=== PATIENT | female | born 1950 | race Caucasian/White ===

== ENCOUNTER 2024-09-25 18:30 | Outpatient (REF) | payer MEDICARE, SELFPAY ==
[2024-09-26 10:52] LABS: Campylobacter PCR Negative (Negative); Salmonella PCR Negative (Negative); Shiga Toxin PCR Negative (Negative); Shigella/Enteroinvasive Ecoli Negative (Negative)
== END 2024-09-25 18:31 | disposition home or self-care (01) ==
LOC: LBN 18:30
PROVIDERS: PCP Nurse Practitioner Family; Visit Provider Physician Assistant
DX: A09 Infectious gastroenteritis and colitis, unspecified; R19.8 Other specified symptoms and signs involving the digestive system and abdomen
CPT/HCPCS: 87329; 87505; 87177

== ENCOUNTER 2024-12-21 14:28 | Outpatient (CLI) | payer MEDICARE, SELFPAY ==
--- NOTE | 2024-12-21 13:45 | DI.RAD_ITS ---
Exam(s) XR PELVIS AP EXAM: XR PELVIS AP CLINICAL HISTORY: RIGHT HIP PAIN. TECHNIQUE: 2D digital imaging was performed. Single AP view. COMPARISON: CR XR Hip 2-3 Views Right from 03/17/2024 FINDINGS: BONES: No acute fracture is present. No bony destructive lesion is seen. JOINTS: No dislocation present. There is moderate narrowing of the superior left hip joint space. T here is moderate periarticular spurring. The left hip I joints are unremarkable. SOFT TISSUE: Normal. IMPRESSION: No acute abnormality. Moderate degenerative changes of the right hip. DATA REPOSITORY: RADIATION DOSE DELIVERED:
== END 2024-12-21 14:29 | disposition home or self-care (01) ==
LOC: DIORS 14:28
PROVIDERS: PCP Registered Nurse; Referring Provider Nurse Practitioner Family; Visit Provider Student in an Organized Health Care Education/Training Program
DX: M16.11 Unilateral primary osteoarthritis, right hip; G20.C Parkinsonism, unspecified
CPT/HCPCS: 20611; J1010; 72170

== ENCOUNTER 2025-03-29 16:18 | Outpatient (REF) | payer MEDICARE, SELFPAY ==
[2025-03-29 16:07] LABS: HCT 40.3 % (36.0-46.0); HGB 12.9 g/dL (11.2-15.7); MCH 26.7 pg (27.0-33.0); MCHC 32.0 % (32.0-36.0); MCV 83 fL (80-95); MPV 11.7 fL (8.0-11.0); Platelet Count 245 10^3/uL (130-400); RBC 4.84 10^6/uL (3.93-5.22); RDW 12.4 % (11.7-14.6); RDW-SD 37.6 fL; WBC 6.10 10^3/uL (4.4-10.8)
[2025-03-29 16:16] LABS: Anion Gap 7.9 mmol/L (3-11); BUN 20 mg/dL (7-18); CO2 28.1 mmol/L (21.0-32.0); Calcium 9.2 mg/dL (8.5-10.1); Chloride 103 mmol/L (98-107); Estimated GFR 91.26 (mL/min/1.73m2); Glucose 129 mg/dL (74-106); Potassium 4.4 mmol/L (3.5-5.1); Sodium 139 mmol/L (136-145)
== END 2025-03-29 16:19 | disposition home or self-care (01) ==
LOC: LBN 16:18
PROVIDERS: PCP Registered Nurse; Visit Provider Student in an Organized Health Care Education/Training Program
DX: Z01.818 Encounter for other preprocedural examination (principal); M16.11 Unilateral primary osteoarthritis, right hip
CPT/HCPCS: 80048; 85027

== ENCOUNTER 2025-04-06 06:55 | Day surgery (SDC) | payer MEDICARE, SELFPAY ==
[2025-04-06] VITALS (19 sets, daily range): BP systolic 87–123; BP diastolic 46–92; PULSE 53–236; RESP 11–22; TEMP 36.1–36.7; O2SAT 95–100; BMI 17.6
--- NOTE | 2025-04-06 07:04 | PDOC.DSDIS_ITS ---
Date of service: 04/06/25 Discharge Plan Disposition Patient Disposition: Home Condition: Good Discharge Details Reason For Visit: Right hip DJD Attending Provider: Rl Rashid Primary Care Provider: Patricia Sifuentes Home Meds and New Rx's Prescriptions: New acetaminophen 500 mg tablet 1,000 mg PO Q8H PRN Qty: 90 0RF Rx Instructions: Take two tablets up to every 8 hours as needed for pain aspirin 81 mg tablet,delayed release (DR/EC) 81 mg PO BID 30 Days Qty: 60 0RF celecoxib [Celebrex] 200 mg capsule 200 mg PO BID PRNQty: 60 0RF Rx Instructions: Take one tablet twice daily for pain and inflammation docusate sodium [Colace] 100 mg capsule 100 mg PO BID Qty: 28 0RF pantoprazole 40 mg tablet,delayed release (DR/EC) 40 mg PO DAILY Qty: 14 0RF Rx Instructions: Take one tablet once daily dexamethasone 4 mg tablet 4 mg PO DAILY Qty: 2 0RF Rx Instructions: Take one tablet once daily for two days oxycodone 5 mg tablet 5 mg PO Q6H PRNQty: 12 0RF Rx Instructions: Take one tablet up to every 6 hours as needed for severe postoperative pain Continued trazodone 50 mg tablet 50 mg PO QHS PRN propranolol 10 mg tablet 10 mg PO TID PRN (Reason: tremor(s)) macuna pruriens PO DAILY Patient Comments: dose equivalent to 120mg L-DOPA TID NOW Brand plant based supplement, tropical legume family alendronate 70 mg tablet 70 mg PO QWEEK Discontinued meloxicam 7.5 mg tablet 7.5 mg PO DAILY PRN Discharge Instructions Additional Instructions: Total Hip Discharge Instructions Activity: The most important activity is to walk. You should try to take short walks a few times a day. You have no restrictions on movement or positioning, but do not try to force what you do. You will find some stiffness and weakness with hip flexion (lifting your knee). Do not try to strengthen this too early, continue to practice walking and stairs and this will come. - Outpatient physical therapy can be helpful to help return you to a normal gait and improve your flexibility and strength. This can start around 2 weeks. For some patients, it?s not necessary. Usually this is determined at the time of discharge or at the first post-operative visit. - You should wear the HINA hose on both legs for 2 weeks. Dressing: Keep the surgical dressing in place for at least one week. After the first week it may be removed and replace with light gauze and tape or nothing. It may get wet after 3 days but avoid soaking the dressing. If it gets wet, just lightly pat dry. It is important to always keep some gauze between skin folds, especially when you are sitting. Spend some time with the wound exposed when you are lying flat as the incision does wrinkle onto itself. Medications: - You should take Tylenol and an anti-inflammatory Celebrex as your primary pain control medications. If the Celebrex is too expensive or not covered, please call the office for another alternative (Advil/Ibuprofen or Naproxen/Aleve). - You have been prescribed a stronger pain medication Oxycodone for breakthrough pain, take as needed as prescribed. - You have also been prescribed a stomach acid reduction agent Pantoprozole to help reduce stomach acid and reflux. - You have also been prescribed Decadron to help with post-operative nausea and pain. You will take this for two days starting tomorrow. - You will be taking Aspirin 81mg twice a day for DVT prevention unless instructed otherwise. - If you have constipation you should take Colace (which has been prescribed) or Miralax (which is available [id number]). It takes most people 3-4 days to have a bowel movement. Follow-up: 2 weeks If you have any acute concerns or questions, please do not hesitate to contact the office at [phone]. You may contact Dr. Rashid with any questions after hours through the hospital at [phone] or on his cell phone at [phone]. Referrals: Rl Rashid MD [ [facility] STAFF PHYSICIAN, Orthopaedic Surgical] Equipment/Supplies: Walker Activity:: Elevate Remove Dressings/Wound Care:: Do Not Remove Shower/Bathe:: Cover Diet:: As Tolerated Discharge Orders Discharge Orders: Discharge Order (Routine); Ordered 04/06/25 Ordered By: Chen Maciel
--- NOTE | 2025-04-06 07:15 | DI.RAD_ITS ---
Exam(s) XR HIP RT IN OR EXAM: XR HIP RT IN OR CLINICAL HISTORY: Osteoarthritis of right hip. TECHNIQUE: 2D and realtime digital imaging was performed. COMPARISON: No exams were available for comparison FINDINGS: A hard copy image shows placement of a right hip prosthesis. The alignment appears satisfactory. Please see procedure note for details. Fluoro time: 23.7seconds RADIATION DOSE DELIVERED: Ka,r=2.01 mGy
[2025-04-06] MEDS: Lactated Ringers 1,000 ML 80 ML IV (07:47)
--- NOTE | 2025-04-06 07:53 | W.ANESPRE ---
General Info Date of Service Date Performed: 04/06/25 Height: 5 ft 6 in Weight: 49.5 kg Body Mass Index (BMI): 17.6 Surgical Procedure: Operation Date: 04/06/25 09:20 Proposed Procedure Side Surgeon p Hip Total Hip Anterior, Corail Right Rl Rashid MD Meds Allergies and Home Medications Allergies Allergy/AdvReac Type Severity Reaction Status Date / Time prednisone AdvReac Intermediate Other (See Verified 04/06/25 07:33 Comment) Home Medication ?Medication ?Instructions ?Recorded trazodone 50 mg tablet 50 mg PO QHS PRN 09/25/24 alendronate 70 mg tablet 70 mg PO QWEEK 03/29/25 macuna pruriens PO DAILY 03/29/25 propranolol 10 mg tablet 10 mg PO TID PRN tremor(s) 03/29/25 acetaminophen 500 mg tablet 1,000 mg (2 x 500 mg) PO Q8H PRN 04/06/25 pain #90 tabs aspirin 81 mg tablet,delayed 81 mg PO BID 30 days #60 tabs 04/06/25 release celecoxib 200 mg capsule (Celebrex) 200 mg PO BID PRN #60 caps 04/06/25 dexamethasone 4 mg tablet 4 mg PO DAILY #2 tabs 04/06/25 docusate sodium 100 mg capsule 100 mg PO BID #28 caps 04/06/25 (Colace) oxycodone 5 mg tablet 5 mg PO Q6H PRN #12 tabs 04/06/25 pantoprazole 40 mg tablet,delayed 40 mg PO DAILY #14 tabs 04/06/25 release Current Visit Medications: Current Medications Generic Name Dose Route Start Last Admin Trade Name Sethq PRN Reason Stop Dose Admin Acetaminophen 1,000 mg 04/06/25 06:00 Acetaminophen 500 Mg Tab PO 04/06/25 23:59 PREOP NOMAN Celecoxib 400 mg 04/06/25 06:00 Celecoxib 200 Mg Cap PO 04/06/25 23:59 PREOP NOMAN Hydromorphone HCl 0.5 mg 04/06/25 07:02 Hydromorphone 2 Mg/Ml Syr IVP 05/06/25 07:01 Q2H PRN PRN Ringer's Solution 1,000 mls @ 80 mls/hr 04/06/25 06:00 04/06/25 07:47 IV 04/06/25 23:59 80 mls/hr INFUSION NOMAN Administration Cefazolin Sodium/Dextrose 2 gm in 50 mls @ 100 mls/hr 04/06/25 06:00 Ancef Duplex IVPB 04/06/25 23:59 PREOP NOMAN Tranexamic Acid/Sodium Chloride 1,000 mg in 100 mls @ 600 mls/hr 04/06/25 06:00 IVPB 04/06/25 23:59 PREOP NOMAN Cefazolin Sodium/Dextrose 1 gm in 50 mls @ 100 mls/hr 04/06/25 08:00 Ancef Duplex IVPB 04/07/25 00:29 Q8H NOMAN IV Miscellaneous Supplies 1 each 04/06/25 06:00 Iv Access IV 04/06/25 23:59 DIRECTED NOMAN Oxycodone HCl 0 mg 04/06/25 07:02 Oxycodone 5 Mg Tab PO 05/06/25 07:01 Q3H PRN PRN Pain Sodium Chloride 0 ml 04/06/25 06:00 Normal Saline Flush 10 Ml Syr IV 04/06/25 23:59 PRN PRN Sodium Chloride 0 ml 04/06/25 06:00 Normal Saline 10 Ml Vial IJ 04/06/25 23:59 DIRECTED PRN Sterile Water 0 ml 04/06/25 06:00 Water,Injection,Sterile 10 Ml Vial IJ 04/06/25 23:59 DIRECTED PRN Tranexamic Acid 1,300 mg 04/06/25 07:02 Tranexamic Acid 650 Mg Tab PO 05/06/25 07:01 ONCE PRN postoperative PFSH Active Problems Active Problems: Problem Status Onset Code Parkinson's disease without dyskinesia or fluctuating manifestations Acute G20.A1 Tremors of nervous system Acute R25.1 Osteoarthritis of right hip Chronic M16.11 Medical History Medical History (Updated 04/06/25 @ 08:12 by El Presley RN) Bunion History of bilateral saline breast implants Surgical History Surgical History (Updated 04/06/25 @ 08:12 by El Presley RN) Abdominal hysterectomy 1989 CATHLEEN/BSO secondary to FHx and elevated CA125 Colonoscopy - MAC (04/25/16) Augmentation mammoplasty Bilateral 1989 Appendectomy 1990-Pt. denies this Tobacco Smoking/Tobacco Use Status: Never Passive smoking exposure: No Alcohol Alcohol Intake: current Alcohol intake frequency: a few times a week Alcohol type: wine Substance Use Substance use: Never Substance use type: does not use Vital Signs and Lab Results Vital Signs Most Recent Vital Signs in EMR: Most Recent Vital Signs Temp Pulse Resp BP Pulse Ox 36.5 C 67 16 115/67 95 04/06/25 07:14 04/06/25 07:14 04/06/25 07:14 04/06/25 07:14 04/06/25 07:14 Lab Results Complete Blood Count: WBC, (4.4-10.8) 6.10 10^3/uL 03/29/25, 13:30 RBC, (3.93-5.22) 4.84 10^6/uL 03/29/25, 13:30 Hgb, (11.2-15.7) 12.9 g/dL 03/29/25, 13:30 Hct, (36.0-46.0) 40.3 % 03/29/25, 13:30 Plt Count, (130-400) 245 10^3/uL 03/29/25, 13:30 Complete Metabolic Panel: Sodium, (136-145) 139 mmol/L 03/29/25, 13:30 Potassium, (3.5-5.1) 4.4 mmol/L 03/29/25, 13:30 Chloride, (98-107) 103 mmol/L 03/29/25, 13:30 Carbon Dioxide, (21.0-32.0) 28.1 mmol/L 03/29/25, 13:30 BUN, (7-18) 20 mg/dL H 03/29/25, 13:30 Creatinine, (0.55-1.02) 0.7 mg/dL 03/29/25, 13:30 Est GFR (CKD-EPI 2020), (mL/min/1.73m2) 91.26 03/29/25, 13:30 Calcium, (8.5-10.1) 9.2 mg/dL 03/29/25, 13:30 Glucose, (74-106) 129 mg/dL H 03/29/25, 13:30 Anesthesia Assessment and Plan Anesthesia History Personal History: No History of Anesthesia Complications Family History: No Family History of Anesthesia Complications Exercise Tolerance Exercise Tolerance: Metabolic Equivalents>4 Pertinent Negatives Pertinent Negatives: No Symptoms of GERD, No Major Cardiovascular Symptoms or Complaints, No Major Pulmonary Symptoms or Complaints and No History of CVA/TIA Cardiac & Pulmonary Exam Cardiac Exam: Normal S1/S2 Heart Sounds Pulmonary Exam: Clear Bilateral Breath Sounds and No cough or Cold Implantable Cardiac Device Does patient have a Pacemaker or an ICD?: No Airway Exam Known Difficult Airway: No Mallampati Class: 3 Mouth Opening: Normal (> 3cm) Thyromental Distance: Less than 3 cm Neck Range of Motion: Full ROM Neck Circumference: Normal Teeth Condition: Normal Dentition and Removable Dentures/Plates Upper (flipper removed) ASA Classification ASA Score: ASA 2 Emergency Case?: No NPO Status NPO Status: NPO Clears >2 hours, Solids >8 hours Anesthesia Plan Resuscitation Status: Full Code Anesthesia Technique: Spinal Anesthesia Airway Planned: Natural Airway Monitors Used: Standard Monitors Preoperative Comments:: Tremor present greater on right side
[2025-04-06] MEDS: Celecoxib 200 MG CAP 400 MG PO (08:17)
[2025-04-06] MEDS: Acetaminophen 500 MG TAB 1000 MG PO (08:17)
[2025-04-06] MEDS: ceFAZolin 2 GM/50 ML BAG IVPB (09:48)
[2025-04-06] MEDS: TRANEXAMIC ACID/SOD. CHL. 1,000 MG/100 ML BAG 600 MG IVPB (10:01)
--- NOTE | 2025-04-06 11:05 | ROE_ITS ---
Operative Note Operative Note PRE-OP DIAGNOSIS: Right Hip Osteoarthritis POST-OP DIAGNOSIS: same PROCEDURE: Right Anterior Total Hip Arthroplasty with Intraoperative Navigation SURGEON: Rl Rashid SALESPERSON WOMEN'S HATS: Chen Maciel ANESTHESIA TYPE: Spinal Refer to Anesthesia Record ESTIMATED BLOOD LOSS: 150 PATHOLOGY: none sent TOURNIQUET TIME: 0 COMPLICATIONS: None Patient was transported to: PACU Patient's condition: stable Implants: 1. Depuy Norcross Acetabular Component, 52mm 2. Depuy Acetabular Liner, [id number] 3. Depuy Corail Standard Collared Femoral Stem, Size 12 4. Depuy Altrx Ceramic Femoral Head, Size 36+1.5mm Indications: I have seen Sonal in clinic for symptoms of hip arthritis, confirmed with radiographic findings. She has exhausted nonoperative methods and was having significant limitations in daily function and desired better function and less pain. I discussed the technical details of a hip replacement. I explained the risks of the procedure to include, but not limited to, bleeding, infection, pain, stiffness, fracture, damage to nerves and vessels, damage to muscles and tendons, loosening, instability, leg length inequality, need for repeat procedure, blood clot and cardiopulmonary demise. Despite these risks, Sonal elected to proceed. Findings: There was significant signs of arthritis throughout the hip involving the femoral head and the acetabulum. Procedure Description: Sonal was greeted in the preoperative holding area where the correct side was identified and marked. The consent was reviewed with the patient and signed. The history and physical was updated. All questions were answered. She was taken back to the operating room. A spinal anesthestic was then administered. The feet were wrapped with cast padding and Coban and then placed into the boot liners and then into the boots. Care was taken to protect the skin and make sure the heels were fully down and the boots were stable. The patient was then positioned onto the HANA table. Both legs were held in a neutral position. SCDs were applied. The patient was then slid down onto a peroneal post. Prophylactic antibiotics in the form of Cefazolin were administered. 1g of Tranxemic Acid was given intravenously within 30 minutes of incision. The right leg was then prepped with Chloraprep and draped in a standard fashion. A second prep with Chloraprep was performed prior to placement of a shower-curtain type drape with Iodine impregnated skin protection. A timeout to confirm correct identity, side and site, procedure, allergies, anesthesia, and medical concerns was performed. An obliquely oriented incision was made starting lateral to the ASIS and running distal over the Tensor Fascia Zuleika (TFL) muscle belly toward the fibular head, approximately 10cm. The skin and soft tissue was dissected sharply, through Zuly?s fascia, and to the fascia of the TFL. With the fascia and superior border of the IT band identified, the fascia was incised with a new knife just above any perforators from the IT band. The TFL muscle belly was bluntly dissected away from the fascia and moved laterally. The fat between TFL and rectus was identified to ensure the dissection was not within the TFL. Blunt dissection created space between abductors and the capsule and retractor was placed over the lateral femoral neck. The fibers of the rectus femoris tendon were identified and these were freed from the anterior capsule. A second cobra retractor was placed around the medial femoral neck. The TFL was further retracted laterally to show the deep fascia. Careful dissection through this layer identified three main crossing vessels of the lateral femoral circumflex. These were cauterized in multiple locations and then cut without any noticeable bleeding. The TFL was further released bluntly from the deep fascia to expose anterior hip capsule and fat The soft tissue orthopaedic retractor was then placed beneath the TFL and against sartorius and medial soft tissues to protect and retract the soft tissues. A T-capsulotomy was then performed starting at the superior lateral acetabulum and moving distally to the intertrochanteric ridge. These capsular flaps were tagged with a No. 1 Vicryl and elevated from within. The capsular flaps were released to the shoulder of the lateral neck and to the lesser trochanter to give excellent visualization of the proximal femur. A neck osteotomy was performed using an oscillating saw based on preoperative templates. This cut started in the shoulder and of the lateral neck and exited medially. The saw was at all times directed medially to avoid injury to the greater trochanter. Gross traction was applied to the leg and the osteotomy opened. The femoral head was removed with a corkscrew, making sure to protect the TFL on its exit. Traction was released after head removal. This was measured on the back table to determine the starting reamer size. Portions of the rectus obscuring visualization were minimally elevated off the superior acetabulum. An anterior retractor was placed over the anterior wall between capsule and labrum and attached to the Gripper retraction system. The femur was rotated to 90 degrees and medial capsule was fully released until the lesser trochanter was palpable and visible; the femur was returned to 30 degrees. A posterior retractor was placed similarly between capsule and labrum. This p rovided excellent visualization. The contents of the cotyloid fossa were removed with electrocautery and the labrum was removed with a knife. There was a notable floor osteophyte. There was significant chondromalacia of the superior acetabulum. Acetabular reaming began with a 48mm reamer. This first reaming was directed anterior to posterior and medial to get down to the true floor. This was inspected and reamed until the true floor was reached. The anterior retractor was then released and entry and exit was provided by traction on the capsular flaps. I then reamed sequentially up to a 52mm reamer where good fit was obtained. The larger reamers were oriented based on anatomical reference of the anterior and lateral grove to ensure proper abduction and anteversion. Positioning and size was confirmed with the fluoroscopy. A 52mm Depuy Norcross acetabular component was selected. The acetabulum was reamed around the periphery with the selected acetabular size to prevent a rim fit. The deep tissues were irrigated. The acetabular component was then impacted in a position of about 40-45 degrees of abduction and 15-20 degrees of anteversion, using the patient?s anatomy as t he ultimate landmark. Fluoroscopy was used to confirm this. There was excellent venipuncturist of the acetabular component and the inserting handle was removed. The acetabular liner, Depuy [id number] polyethylene liner, was inserted and lined up with the tines of the acetabular component. There was no soft tissue interposition. The liner was then impacted into position and confirmed to be well-seated. A portion of the abigail-articular cocktail was then injected around the acetabulum into the capsule and periosteum. This cocktail consisted of 123mg of Ropivacaine, 0.25mg of Epinephrine, 0.04mg of Clonidine, and 15mg of Ketorolac, diluted to 50cc. The leg was rotated to 120 degrees. Any remaining medial capsule was released until the lesser trochanter was easily palpable. A retractor was placed medially. The lateral capsule was further released into the shoulder to allow access to the greater trochanter. A Cornelius retractor was placed over the greater trochanter which allowed the trochanter to flip in front of the capsule for excellent exposure. The leg was brought down into maximal extension and 20 degrees of adduction while ensuring there was no impingement on the acetabulum. Any remnant capsule within the trochanter was released. Piriformis and obturator externis were identified and protected. There was excellent access to the proximal femur. The lateral neck remnant was removed with a rongeur. A blunt canal probe was used to identify the canal and trajectory for later broaching. A box osteotome initiated the broach course. A small curved rasp and a curved curette were used to work laterally. Broaching then began with a size 8 Corail broach. This was inserted manually around the trochanter and into the canal before mallet blows. The broach was seated to a few millimeters below the cut level based on the neck cut and the preoperative template. Sequential broaching was continued with the MeetBallse pneumatic broaching device until a tight fit was obtained with good rotational control of the femur. A trial standard neck was inserted along with a +1.5 trial head. The leg was brought out of extension and adduction and then reduced with traction and internal rotation. The leg was stable anteriorly in a position of 30 degrees of extension and 90 degrees of external rotation. Fluoroscopy was used to ensure there was no fracture and the stem was seated well. Leg lengths were checked with an AP pelvis and pelvic reference points. [employer] navigation system was used to confirm appropriate positioning and leg length and offset. Once content with the desired offset and leg lengths, the leg was brought back into extension, external rotation and adduction. The periosteum and surrounding tissue was injected with remaining portion of the abigail-articular cocktail. The proximal femur was irrigated as well as the deep tissues. The Depuy Corail standard collared stem, size 12, was then manually inserted into the proximal femur making sure to control rotation. It was then malleted into position with light blows, giving breaks to allow bone expansion and decrease risk of fracture. The selected Depuy Altrx Ceramic Head, size 36+1.5mm, was then placed onto the clean and dry trunnion and secured with impaction onto the tapered fit. The leg was brought back out of extension and adduction and reduced with traction and internal rotation. Stability was confirmed with no shuck at 90 degrees of external rotation and 30 degrees of extension. No impingement through range of motion arc. Final x-ray images were obtained with fluoroscopy to confirm adequate positioning and no intraoperative fracture. The deep tissues were thoroughly irrigated with Surgiphor, betadine solution. This was allowed to sit in the wound for 3 minutes before being thoroughly irrigated out with normal saline. The capsule was then reapproximated with the previously placed sutures and the indirect head of the rectus was inspected and reapproximated with a #1 Vicryl. The TFL fascia was finally closed with a No. 2 Stratafix, barbed suture. Deep tissues were then reapproximated with 0 Vicryl and a running 2-0 Vicryl. The skin was closed with a running 4-0 Monocryl in a subcuticular fashion. This was reinforced with skin glue. A Mepilex silver dressing was applied. At the end of the case, all counts were correct. Sonal was transferred to the hospital bed without difficulty and suffering no apparent complication. She has a good prognosis. Physical therapy will start today and without restrictions, weight-bearing as tolerated. Aspirin 81mg BID will be used for DVT prophylaxis. Date of Procedure: 04/06/25
--- NOTE | 2025-04-06 11:35 | W.ANESPOSTOP ---
Postoperative Evaluation Date, Time and Location Date Performed: 04/06/25 Time Performed: 11:35 Patient Location: PACU Vital Signs Most Recent Imported Vital Signs: Most Recent Vital Signs Temp Pulse Resp BP Pulse Ox 36.7 C 67 16 115/67 95 04/06/25 11:13 04/06/25 07:14 04/06/25 07:14 04/06/25 07:14 04/06/25 07:14 Pain Score Most Recent Pain Score: Most Recent Pain Score Pain Level 0 04/06/25 11:23 Assessment Mental Status: Awake (Alert & Oriented to Patient Baseline) Airway and Respiratory Function: Patent airway with normal (patient baseline) respiratory exam Cardiovascular Function: Hemodynamically Stable Hydration Status: Adequately Hydrated Nausea & Vomiting: No Nausea or Vomiting Pain: Pt. Denies Any Pain Peripheral Nerve Block: Patient did not receive a nerve block
--- NOTE | 2025-04-06 12:54 | PT.INIE ---
PT Notes Visit Reasons: Right hip DJD Physical Therapy Day Surgery Initial Evaluation Date: 04/06/2025 Referring Doctor: Chen Maciel NP/ Dr Rashid PT Orders: PT CONSULT: s/p Ortho surgery Precautions: WBAT LLE with AD Patient Profile/Admitting Diagnosis: Pt is a 74 yo female who presented s/p elective Left JODY under spinal anesthesia by Dr Rashid on 04/06/2025. Post op uncomplicated. PMHX: Osteoarthritis of right hip (Acute) Medical History Parkinson's Disease without Dyskinesia or fluctuating manifestations Tremors Bunion History of bilateral saline breast implants Surgical History Abdominal hysterectomy 1989 CATHLEEN/BSO secondary to FHx and elevated [id number] - MAC (04/25/16) Augmentation mammoplasty Bilateral 1989 Appendectomy 1990 Social History/Home Situation: Resides in [facility] with [address] with rail and [facility] with rail to bedroom. Pt has full bath on 1st floor. Pt is very active hikes 3+ miles per day until day before surgery. Equipment Owned/DME: Standard Walker, wheeled walker, commode for over toilet Subjective: Pt reports she only has the tremor at rest. She states she hikes miles each day despite the pain in her hip. Objective: [] General Observation: female on stretcher with ice to right hip, present Mental Status: Alert and oriented x 4, cooperative, able to follow instructions, agreeable to participate in evaluation Pain: Right hip 3/10 ROM: [] Right Upper Extremity: WFL Left Upper Extremity: WFL Right Lower Extremity: Hip flexion 92 degrees, abduction 12 degrees, internal rotation to neutral, extension 5 degrees; knee and ankle WFL Left Lower Extremity: WFL Strength: resting Tremor RUE Right Upper Extremity: 5/5 Left Upper Extremity: 5/5 Left Lower Extremity: 5/5 right Lower Extremity: >/= to 3/5 all joints Sensation: intact Bed Mobility/Transfers: [] Supine to sit independent Sit to stand SBA cues to push up with hands Stand to sit SBA cues to reach back. Bed to chair SBA with FWW Gait: amb with FWW 150 feet with SBA cues to achieve heelstrike on right. Pt with narrow GARRY and shortened step length Stairs: 3 4 steps? and 2 6 steps with rails SBA with continuous cues for sequencing step to pattern Balance: [] Static Sitting: Normal Dynamic Sitting: Good Static Standing: Good with 1 upper extremity support Dynamic Standing: [] Fair with 1 upper extremity support Special Tests: [] Mobility Limitations Standardized Measure [] [facility] AM-PAC 6 clicks Basic Mobility Inpatient Short Form: [] Raw Score: 22 CMS Score: 20.91% Informed Consent/Education: Patient instructed in purpose of PT consult. Treatment: [id number] packet containing JODY exercise protocol has been given to patient. Education and training on initial set of 3 reps of exercises that can be done at home have been completed with patient. Assessment: Patient is a 74-year-old female who Presents with clinical signs and symptoms consistent with current/admitting diagnoses that have resulted to mobility limitations, gait instability, generalized weakness, and impairment of motor control as demonstrated by the following impairment level findings: 1. Decreased strength to right hip major muscle groups 2. Impaired standing balance 3. Limitation of joint range of motion in right hip 4. Pain right hip 5. Impaired functional activity tolerance Impairments are contributing to the following functional limitations: 1. Inability to safely ambulate without assistive device 2. Increase completion time for mobility ADL performance 3. Increased fall risk 4. Difficulty performing stairs without assistance Patient is assessed as a low complexity based on the following: History: 74-year-old female with impairment level findings, functional limitations, and past medical history as indicated above Examination: Demonstrable impairment in strength, balance, and mobility level with underlying impairments and functional limitations as documented above Presentation: stable Decision Making: low Goals: N/A. PT evaluation and 1-2 treatment sessions only for functional mobility training using recommended AD and for HEP instruction. Plan of Care/Treatment Plan: N/A. PT evaluation and 1-2 treatment session only for functional mobility training using recommended AD and for HEP instruction. DISCHARGE RECOMMENDATIONS:Home with HEP per JODY protocol TREATMENT CODE/TIME: 77987,[id number]/ [id number] Thank you for the opportunity to participate in the care of this patient. Alyson Vasquez, PT [facility]
== END 2025-04-06 13:38 | disposition home or self-care (01) ==
PROVIDERS: PCP Registered Nurse; Visit Provider Student in an Organized Health Care Education/Training Program
PROC: (CPT 27130; principal; 2025-04-06 09:00)
DX: M16.11 Unilateral primary osteoarthritis, right hip (principal)
CPT/HCPCS: 20985; 27130; 97110; 97161; 73501; C1776; J0690; J1100; J2003; J2371; J2401; J2405; J2704

== ENCOUNTER 2025-04-19 15:04 | Outpatient (CLI) | payer MEDICARE, SELFPAY ==
--- NOTE | 2025-04-19 13:15 | DI.RAD_ITS ---
Exam(s) XR HIP RT COMPLETE AP PELVIS EXAM: XR HIP RT COMPLETE AP PELVIS CLINICAL HISTORY: 1ST POST OP R JODY. TECHNIQUE: 2D digital imaging was performed. Two images were obtained. AP pelvis and lateral hip views were obtained. COMPARISON: CR XR PELVIS AP from 12/21/2024 XA XR HIP RT IN OR from 04/06/2025 FINDINGS: BONES: There are stable post operative changes of a right total hip arthroplasty present. There is a 9 mm osseous density lateral to the right femoral neck component of the prosthesis. This is not visualized on the intraoperative film. JOINTS: The orthopedic hardware is in good position. No evidence of hardware loosening. SOFT TISSUE: Normal. IMPRESSION: 1. Interval placement of a right total hip arthroplasty which appears in good position. 2. 9 mm osseous density lateral to the right femoral neck component of the prosthesis. A displaced fracture fragment should be considered. This is not visualized on the intraoperative film from 04/06/2025. DATA REPOSITORY: RADIATION DOSE DELIVERED:
== END 2025-04-19 15:05 | disposition home or self-care (01) ==
LOC: DIORS 15:05
PROVIDERS: PCP Registered Nurse; Visit Provider Physician Assistant
DX: Z96.641 Presence of right artificial hip joint (principal); Z47.1 Aftercare following joint replacement surgery
CPT/HCPCS: 99024; 73502